=== PATIENT | female | born 1990 | race Hispanic/Latino ===

== ENCOUNTER 2025-03-07 10:03 | Emergency (ER) | payer OTHER, MEDICAID | END 2025-03-07 12:53 | disposition home or self-care (01) | LOC: CSHERS 10:03 | DX: S50.01XA Contusion of right elbow, initial encounter (principal); S90.31XA Contusion of right foot, initial encounter; S40.011A Contusion of right shoulder, initial encounter; M54.2 Cervicalgia; R20.2 Paresthesia of skin; F17.210 Nicotine dependence, cigarettes, uncomplicated; V49.40XA Driver injured in collision with unspecified motor vehicles in traffic accident, initial encounter | CPT/HCPCS: 72040; 99284 ==